=== PATIENT | male | born 1945 | race Caucasian/White ===

== ENCOUNTER → 2023-06-19 07:11 | Outpatient (REF) | payer OTHER, SELFPAY ==
[2023-06-19 08:28] LABS: ALT (SGPT) 26 U/L (0-50); AST (SGOT) 24 U/L (17-59); Albumin 3.8 g/dl (3.5-5.0); Alkaline Phosphatase 58 U/L (38-126); Blood Urea Nitrogen 27 mg/dl (9-20); Calcium 9.4 mg/dl (8.4-10.2); Carbon Dioxide 26 mmol/L (22-30); Chloride 103 mmol/L (98-107); Glucose 175 mg/dl (70-99); HDL Cholesterol 38 mg/dl; LDL Cholesterol, Calculated 19 mg/dl; Potassium 5.1 mmol/L (3.5-5.1); Sodium 141 mmol/L (135-145); Total Bilirubin 1.5 mg/dl (0.2-1.3); Total Cholesterol 92 mg/dl (50-199); Total Protein 6.6 g/dl (6.3-8.2); Triglyceride 175 mg/dl (10-149); Very Low Density Lipoprotein 35 mg/dl (0-30); eGFR > 60.00
[2023-06-19 08:37] LABS: Glycohemoglobin (HgbA1c) 7.6 % (4.0-5.6)
[2023-06-19 08:44] LABS: Free T3 3.05 pg/ml (2.77-5.27)
[2023-06-19 08:50] LABS: Microalbumin, Random Urine 10.9 mg/dl (0.6-1.7)
[2023-06-19 08:58] LABS: TSH 2.04 uIU/ml (0.47-4.68)
[2023-06-20 21:49] LABS: Total T3 (Sendout) 100 ng/dL (80-200)
== END ==
LOC: REG 07:11
PROVIDERS: ATTENDING PHYSICIAN Internal Medicine Endocrinology, Diabetes & Metabolism; FAMILY PHYSICIAN Internal Medicine
DX: E03.9 Hypothyroidism, unspecified (principal); R80.9 Proteinuria, unspecified; E11.65 Type 2 diabetes mellitus with hyperglycemia; E78.5 Hyperlipidemia, unspecified; R74.01 Elevation of levels of liver transaminase levels; R53.83 Other fatigue
CPT/HCPCS: 36415; 80053; 80061; 82043; 83036; 84439; 84443; 84480; 84481

== ENCOUNTER → 2023-10-06 07:28 | Outpatient (REF) | payer OTHER, SELFPAY ==
[2023-10-06 08:49] LABS: ALT (SGPT) 24 U/L (0-50); AST (SGOT) 28 U/L (17-59); Albumin 4.3 g/dl (3.5-5.0); Alkaline Phosphatase 52 U/L (38-126); Blood Urea Nitrogen 31 mg/dl (9-20); Calcium 9.6 mg/dl (8.4-10.2); Carbon Dioxide 24 mmol/L (22-30); Chloride 106 mmol/L (98-107); Glucose 143 mg/dl (70-99); HDL Cholesterol 43 mg/dl; LDL Cholesterol, Calculated 41 mg/dl; Potassium 4.7 mmol/L (3.5-5.1); Sodium 141 mmol/L (135-145); Total Bilirubin 1.2 mg/dl (0.2-1.3); Total Cholesterol 107 mg/dl (50-199); Total Protein 7.1 g/dl (6.3-8.2); Triglyceride 115 mg/dl (10-149); Very Low Density Lipoprotein 23 mg/dl (0-30); eGFR 56.23
[2023-10-06 08:56] LABS: Free T3 3.53 pg/ml (2.77-5.27); Free T4 0.95 ng/dl (0.78-2.19); Vitamin D, 25-OH*** 47.8 ng/mL (30-80)
[2023-10-06 09:04] LABS: Glycohemoglobin (HgbA1c) 6.9 % (4.0-5.6)
[2023-10-06 09:09] LABS: TSH 2.69 uIU/ml (0.47-4.68)
[2023-10-06 09:28] LABS: Microalbumin, Random Urine 12.4 mg/dl (0.6-1.7); Microalbumin/creatinine Ratio 69.6 mg/g
== END ==
LOC: REG 07:28
PROVIDERS: ATTENDING PHYSICIAN Internal Medicine Endocrinology, Diabetes & Metabolism; FAMILY PHYSICIAN Internal Medicine
DX: E03.9 Hypothyroidism, unspecified (principal); E55.9 Vitamin D deficiency, unspecified; R80.9 Proteinuria, unspecified; E11.65 Type 2 diabetes mellitus with hyperglycemia; E78.5 Hyperlipidemia, unspecified; R53.83 Other fatigue
CPT/HCPCS: 36415; 80053; 80061; 82043; 82306; 82570; 83036; 84439; 84443; 84481

== ENCOUNTER → 2023-11-16 09:15 | Outpatient (REF) | payer OTHER, SELFPAY ==
[2023-11-16 11:22] LABS: Microalbumin, Random Urine 9.8 mg/dl (0.6-1.7); Microalbumin/creatinine Ratio 44.5 mg/g
[2023-11-16 11:27] LABS: ALT (SGPT) 30 U/L (0-50); AST (SGOT) 30 U/L (17-59); Albumin 4.4 g/dl (3.5-5.0); Alkaline Phosphatase 57 U/L (38-126); Blood Urea Nitrogen 35 mg/dl (9-20); Calcium 9.6 mg/dl (8.4-10.2); Carbon Dioxide 28 mmol/L (22-30); Chloride 101 mmol/L (98-107); Glucose 131 mg/dl (70-99); HDL Cholesterol 35 mg/dl; LDL Cholesterol, Calculated 30 mg/dl; Potassium 4.9 mmol/L (3.5-5.1); Sodium 139 mmol/L (135-145); Total Bilirubin 2.2 mg/dl (0.2-1.3); Total Cholesterol 106 mg/dl (50-199); Triglyceride 205 mg/dl (10-149); Very Low Density Lipoprotein 41 mg/dl (0-30); eGFR 47.36
[2023-11-17 09:24] LABS: Glycohemoglobin (HgbA1c) 6.8 % (4.0-5.6)
== END ==
LOC: REG 09:15
PROVIDERS: ATTENDING PHYSICIAN Internal Medicine Endocrinology, Diabetes & Metabolism; FAMILY PHYSICIAN Internal Medicine
DX: R80.9 Proteinuria, unspecified (principal); E11.65 Type 2 diabetes mellitus with hyperglycemia; R53.83 Other fatigue
CPT/HCPCS: 36415; 80053; 80061; 82043; 82570; 83036

== ENCOUNTER → 2024-01-04 13:45 | Outpatient (REF) | payer OTHER, SELFPAY ==
[2024-01-04 15:53] LABS: ALT (SGPT) 28 U/L (0-50); AST (SGOT) 30 U/L (17-59); Albumin 4.4 g/dl (3.5-5.0); Alkaline Phosphatase 55 U/L (38-126); Blood Urea Nitrogen 29 mg/dl (9-20); Calcium 9.6 mg/dl (8.4-10.2); Carbon Dioxide 27 mmol/L (22-30); Chloride 101 mmol/L (98-107); Glucose 127 mg/dl (70-99); HDL Cholesterol 38 mg/dl; LDL Cholesterol, Calculated 36 mg/dl; Potassium 4.8 mmol/L (3.5-5.1); Sodium 141 mmol/L (135-145); Total Bilirubin 1.5 mg/dl (0.2-1.3); Total Cholesterol 108 mg/dl (50-199); Total Protein 7.2 g/dl (6.3-8.2); Triglyceride 170 mg/dl (10-149); Very Low Density Lipoprotein 34 mg/dl (0-30); eGFR > 60.00
[2024-01-04 16:14] LABS: Microalbumin, Random Urine 15.5 mg/dl (0.6-1.7); Microalbumin/creatinine Ratio 75.9 mg/g
[2024-01-04 16:18] LABS: Free T3 3.37 pg/ml (2.77-5.27); Free T4 0.91 ng/dl (0.78-2.19); Vitamin D, 25-OH*** 61.2 ng/mL (30-80)
[2024-01-04 16:32] LABS: TSH 1.82 uIU/ml (0.47-4.68)
[2024-01-05 11:53] LABS: Glycohemoglobin (HgbA1c) 6.7 % (4.0-5.6)
[2024-01-07 01:33] LABS: C-Peptide 3.6 ng/mL (0.5-3.3)
== END ==
LOC: REG 13:45
PROVIDERS: ATTENDING PHYSICIAN Internal Medicine Endocrinology, Diabetes & Metabolism; FAMILY PHYSICIAN Internal Medicine
DX: E55.9 Vitamin D deficiency, unspecified (principal); E03.9 Hypothyroidism, unspecified; R80.9 Proteinuria, unspecified; E11.65 Type 2 diabetes mellitus with hyperglycemia; E78.5 Hyperlipidemia, unspecified; R53.83 Other fatigue
CPT/HCPCS: 36415; 80053; 80061; 82043; 82306; 82570; 83036; 84439; 84443; 84481; 84681

== ENCOUNTER → 2024-03-25 06:44 | Outpatient (REF) | payer OTHER, SELFPAY ==
[2024-03-25 07:43] LABS: ALT (SGPT) 35 U/L (0-50); AST (SGOT) 32 U/L (17-59); Albumin 4.5 g/dl (3.5-5.0); Alkaline Phosphatase 53 U/L (38-126); Blood Urea Nitrogen 30 mg/dl (9-20); Calcium 9.7 mg/dl (8.4-10.2); Carbon Dioxide 29 mmol/L (22-30); Chloride 102 mmol/L (98-107); Glucose 142 mg/dl (70-99); HDL Cholesterol 45 mg/dl; LDL Cholesterol, Calculated 35 mg/dl; Potassium 4.8 mmol/L (3.5-5.1); Sodium 144 mmol/L (135-145); Total Bilirubin 1.7 mg/dl (0.2-1.3); Total Cholesterol 113 mg/dl (50-199); Total Protein 7.7 g/dl (6.3-8.2); Triglyceride 165 mg/dl (10-149); Very Low Density Lipoprotein 33 mg/dl (0-30); eGFR 51.45
[2024-03-25 07:45] LABS: Microalbumin, Random Urine 13.5 mg/dl (0.6-1.7); Microalbumin/creatinine Ratio 76.1 mg/g
[2024-03-25 08:00] LABS: Free T3 3.89 pg/ml (2.77-5.27); Free T4 0.92 ng/dl (0.78-2.19); Vitamin D, 25-OH*** 50.8 ng/mL (30-80)
[2024-03-25 08:13] LABS: TSH 2.24 uIU/ml (0.47-4.68)
[2024-03-25 08:55] LABS: Glycohemoglobin (HgbA1c) 6.7 % (4.0-5.6)
[2024-03-27 15:22] LABS: Total T3 (Sendout) 106 ng/dL (80-200)
== END ==
LOC: REG 06:44
PROVIDERS: ATTENDING PHYSICIAN Internal Medicine Endocrinology, Diabetes & Metabolism; FAMILY PHYSICIAN Internal Medicine; OTHER PHYSICIAN Podiatrist Foot & Ankle Surgery
DX: E55.9 Vitamin D deficiency, unspecified (principal); E03.9 Hypothyroidism, unspecified; R80.9 Proteinuria, unspecified; E11.65 Type 2 diabetes mellitus with hyperglycemia; E78.5 Hyperlipidemia, unspecified; R53.83 Other fatigue; R74.01 Elevation of levels of liver transaminase levels
CPT/HCPCS: 80053; 80061; 82043; 82306; 82570; 83036; 84439; 84443; 84480; 84481

== ENCOUNTER → 2024-06-20 10:14 | Outpatient (REF) | payer OTHER, SELFPAY ==
[2024-06-20 11:11] LABS: Ionized Calcium 1.23 mMOL/L (1.15-1.33)
[2024-06-20 11:19] LABS: NT-proBNP 56.7 pg/ml
[2024-06-20 11:44] LABS: ALT (SGPT) 30 U/L (0-50); AST (SGOT) 29 U/L (17-59); Albumin 4.4 g/dl (3.5-5.0); Alkaline Phosphatase 64 U/L (38-126); Blood Urea Nitrogen 42 mg/dl (9-20); Calcium 9.8 mg/dl (8.4-10.2); Carbon Dioxide 31 mmol/L (22-30); Chloride 101 mmol/L (98-107); Glucose 145 mg/dl (70-99); HDL Cholesterol 40 mg/dl; LDL Cholesterol, Calculated 38 mg/dl; Potassium 4.9 mmol/L (3.5-5.1); Sodium 140 mmol/L (135-145); Total Bilirubin 1.7 mg/dl (0.2-1.3); Total Cholesterol 110 mg/dl (50-199); Total Protein 7.6 g/dl (6.3-8.2); Triglyceride 164 mg/dl (10-149); Very Low Density Lipoprotein 32 mg/dl (0-30); eGFR 43.83
[2024-06-20 12:16] LABS: Free T4 1.08 ng/dl (0.78-2.19); Vitamin D, 25-OH*** 44.5 ng/mL (30-80)
[2024-06-20 12:20] LABS: Microalbumin, Random Urine 7.8 mg/dl (0.6-1.7); Microalbumin/creatinine Ratio 44.7 mg/g
[2024-06-20 12:28] LABS: TSH 1.68 uIU/ml (0.47-4.68)
[2024-06-22 17:58] LABS: Thyroid Peroxidase Ab (TPO) <0.3 IU/mL (0.0-9.0)
[2024-06-22 18:34] LABS: C-Peptide 3.3 ng/mL (0.5-3.3)
== END ==
LOC: REG 10:14
PROVIDERS: ATTENDING PHYSICIAN Internal Medicine Endocrinology, Diabetes & Metabolism; FAMILY PHYSICIAN Internal Medicine
DX: E03.9 Hypothyroidism, unspecified (principal); E55.9 Vitamin D deficiency, unspecified; R80.9 Proteinuria, unspecified; E11.65 Type 2 diabetes mellitus with hyperglycemia; E78.5 Hyperlipidemia, unspecified; R74.01 Elevation of levels of liver transaminase levels; R79.89 Other specified abnormal findings of blood chemistry; R79.82 Elevated C-reactive protein (CRP)
CPT/HCPCS: 36415; 80053; 80061; 82043; 82306; 82330; 82570; 83036; 83880; 84439; 84443; 84481; 84681; 86376

== ENCOUNTER → 2024-09-19 09:43 | Outpatient (REF) | payer OTHER, SELFPAY ==
[2024-09-19 11:01] LABS: ALT (SGPT) 25 U/L (0-50); AST (SGOT) 23 U/L (17-59); Albumin 4.2 g/dl (3.5-5.0); Alkaline Phosphatase 53 U/L (38-126); Blood Urea Nitrogen 37 mg/dl (9-20); Calcium 9.7 mg/dl (8.4-10.2); Carbon Dioxide 27 mmol/L (22-30); Chloride 104 mmol/L (98-107); Glucose 136 mg/dl (70-99); HDL Cholesterol 38 mg/dl; LDL Cholesterol, Calculated 26 mg/dl; Potassium 4.9 mmol/L (3.5-5.1); Sodium 141 mmol/L (135-145); Total Cholesterol 91 mg/dl (50-199); Total Protein 7.1 g/dl (6.3-8.2); Triglyceride 138 mg/dl (10-149); Very Low Density Lipoprotein 27 mg/dl (0-30); eGFR 55.88
[2024-09-19 12:15] LABS: Free T4 1.16 ng/dl (0.78-2.19); Vitamin D, 25-OH*** 51.4 ng/mL (30-80)
[2024-09-19 12:28] LABS: TSH 2.12 uIU/ml (0.47-4.68)
[2024-09-19 12:58] LABS: Free T3 3.43 pg/ml (2.77-5.27)
[2024-09-19 12:59] LABS: Glycohemoglobin (HgbA1c) 6.6 % (4.0-5.6)
[2024-09-19 14:15] LABS: Microalbumin, Random Urine 16.3 mg/dl (0.6-1.7); Microalbumin/creatinine Ratio 67.5 mg/g
[2024-09-20 20:11] LABS: Thyroid Peroxidase Ab (TPO) <0.3 IU/mL (0.0-9.0)
== END ==
LOC: REG 09:43
PROVIDERS: ATTENDING PHYSICIAN Internal Medicine Endocrinology, Diabetes & Metabolism; FAMILY PHYSICIAN Internal Medicine
DX: E03.9 Hypothyroidism, unspecified (principal); E55.9 Vitamin D deficiency, unspecified; R80.9 Proteinuria, unspecified; E11.65 Type 2 diabetes mellitus with hyperglycemia; E78.5 Hyperlipidemia, unspecified; R74.01 Elevation of levels of liver transaminase levels; R53.83 Other fatigue
CPT/HCPCS: 36415; 80053; 80061; 82043; 82306; 82570; 83036; 84439; 84443; 84481; 86376

== ENCOUNTER → 2024-12-22 06:33 | Outpatient (REF) | payer OTHER, SELFPAY ==
[2024-12-22 08:23] LABS: ALT (SGPT) 30 U/L (0-50); AST (SGOT) 26 U/L (17-59); Albumin 4.7 g/dl (3.5-5.0); Alkaline Phosphatase 52 U/L (38-126); Blood Urea Nitrogen 38 mg/dl (9-20); Calcium 10.1 mg/dl (8.4-10.2); Carbon Dioxide 24 mmol/L (22-30); Chloride 106 mmol/L (98-107); Glucose 78 mg/dl (70-99); HDL Cholesterol 36 mg/dl; LDL Cholesterol, Calculated 27 mg/dl; Potassium 5.0 mmol/L (3.5-5.1); Sodium 142 mmol/L (135-145); Total Protein 7.7 g/dl (6.3-8.2); Very Low Density Lipoprotein 33 mg/dl (0-30); eGFR 47.06
[2024-12-22 08:24] LABS: Microalb - Urine Creatinine 154.900 mg/dl
[2024-12-22 08:25] LABS: Microalbumin, Random Urine 8.2 mg/dl (0.6-1.7)
[2024-12-22 08:36] LABS: Free T3 3.34 pg/ml (2.77-5.27)
[2024-12-22 08:38] LABS: Vitamin D, 25-OH*** 46.3 ng/mL (30-80)
[2024-12-22 08:50] LABS: TSH 1.90 uIU/ml (0.47-4.68)
[2024-12-22 11:00] LABS: Glycohemoglobin (HgbA1c) 7.0 % (4.0-5.6)
== END ==
LOC: REG 06:33
PROVIDERS: ATTENDING PHYSICIAN Internal Medicine Endocrinology, Diabetes & Metabolism; FAMILY PHYSICIAN Internal Medicine
DX: E78.5 Hyperlipidemia, unspecified (principal); R74.01 Elevation of levels of liver transaminase levels; R53.83 Other fatigue; E11.65 Type 2 diabetes mellitus with hyperglycemia; R80.9 Proteinuria, unspecified; E55.9 Vitamin D deficiency, unspecified; E03.9 Hypothyroidism, unspecified
CPT/HCPCS: 36415; 80053; 80061; 82043; 82306; 82570; 83036; 84439; 84443; 84481

== ENCOUNTER → 2025-03-25 06:50 | Outpatient (REF) | payer OTHER, SELFPAY ==
[2025-03-25 07:42] LABS: Hematocrit 37.3 % (39.0-52.0); Hemoglobin 12.5 g/dL (13.0-18.0); Mean Corp Hgb Conc. 33.5 g/dL (33.0-37.0); Mean Corpuscular Volume 86.5 fL (80.0-94.0); Nucleated Red Blood Cells % 0 % (-); Platelet Count 283 10^3/uL (130-400); Red Cell Dist. Width 12.6 % (11.5-14.5)
[2025-03-25 08:10] LABS: ALT (SGPT) 27 U/L (0-50); AST (SGOT) 23 U/L (17-59); Albumin 4.4 g/dl (3.5-5.0); Alkaline Phosphatase 58 U/L (38-126); Blood Urea Nitrogen 24 mg/dl (9-20); Calcium 9.5 mg/dl (8.4-10.2); Carbon Dioxide 30 mmol/L (22-30); Chloride 102 mmol/L (98-107); Glucose 107 mg/dl (70-99); HDL Cholesterol 40 mg/dl; LDL Cholesterol, Calculated 50 mg/dl; Potassium 4.8 mmol/L (3.5-5.1); Sodium 139 mmol/L (135-145); Total Protein 7.7 g/dl (6.3-8.2); Very Low Density Lipoprotein 30 mg/dl (0-30); eGFR > 60.00
[2025-03-25 08:14] LABS: Microalb - Urine Creatinine 110.400 mg/dl
[2025-03-25 08:18] LABS: Microalbumin, Random Urine 14.1 mg/dl (0.6-1.7)
[2025-03-25 08:26] LABS: Free T3 3.83 pg/ml (2.77-5.27); Vitamin D, 25-OH*** 42.3 ng/mL (30-80)
[2025-03-25 08:38] LABS: TSH 1.98 uIU/ml (0.47-4.68)
[2025-03-25 08:59] LABS: Vitamin B12 219 pg/ml (239-931)
[2025-03-25 09:46] LABS: Glycohemoglobin (HgbA1c) 7.1 % (4.0-5.9)
== END ==
LOC: REG 06:50
PROVIDERS: ATTENDING PHYSICIAN Internal Medicine Endocrinology, Diabetes & Metabolism; FAMILY PHYSICIAN Internal Medicine
DX: E11.65 Type 2 diabetes mellitus with hyperglycemia (principal); E78.5 Hyperlipidemia, unspecified; R53.83 Other fatigue; R74.01 Elevation of levels of liver transaminase levels; E34.9 Endocrine disorder, unspecified
CPT/HCPCS: 36415; 80053; 80061; 82043; 82306; 82570; 82607; 82626; 82627; 83036; 84439; 84443; 84481; 85025; 86376